=== PATIENT | male | born 1955 | race Caucasian/White ===

== ENCOUNTER → 2016-12-24 | Outpatient (REF) | payer MEDICARE ==
[~2016-12-24] MED LIST: /BENA10TA OR; /WARF5TA OR; ALLO300T OR; ATEN25TA OR; CELE-19 PO; COUM10TA OR; GLUC500T OR; LIPI10TA OR; PAIN325T OR; PERC5TAB8 OR; PERC7.5T8 OR
[2016-12-24 11:25] LABS: MEAN CORPUSCULAR HEMOGLOBIN 30.7 pg (27.0-33.0); MEAN CORPUSCULAR HGB CONC 34.7 g/dl (32.0-36.5); MEAN CORPUSCULAR VOLUME 88.6 fl (80.0-96.0); RED CELL DISTRIBUTION WIDTH 14.1 % (11.5-14.5); WHITE BLOOD COUNT 9.7 K/mm3 (4.0-10.0)
[2016-12-24 12:25] LABS: ALBUMIN/GLOBULIN RATIO 1.14 (1.00-1.93); ALKALINE PHOSPHATASE 77 U/L (45-117); ALT/SGPT 34 U/L (12-78); ANION GAP 13 MEQ/L (8-16); AST/SGOT 28 U/L (15-37); BILIRUBIN,TOTAL 1.7 MG/DL (0.2-1.0); BLOOD UREA NITROGEN 21 MG/DL (7-18); CALCIUM LEVEL 9.2 MG/DL (8.8-10.2); CARBON DIOXIDE LEVEL 28 MEQ/L (21-32); CHLORIDE LEVEL 102 MEQ/L (98-107); CHOLESTEROL LEVEL 167 MG/DL (<200); GLOMERULAR FILTRATION RATE > 60.0 (>49); GLUCOSE, FASTING 114 MG/DL (80-110); MAGNESIUM LEVEL 2.1 MG/DL (1.8-2.4); POTASSIUM SERUM 3.7 MEQ/L (3.5-5.1); SODIUM LEVEL 143 MEQ/L (136-145); TOTAL PROTEIN 7.5 GM/DL (6.4-8.2); TRIGLYCERIDES LEVEL 139 MG/DL (<150); URIC ACID 4.6 MG/DL (3.5-7.2)
== END ==
LOC: M SFHCPLAZ 09:31
PROVIDERS: ATTEND Internal Medicine
DX: M19.90 Unspecified osteoarthritis, unspecified site (principal); I10 Essential (primary) hypertension; E11.9 Type 2 diabetes mellitus without complications; E78.5 Hyperlipidemia, unspecified; M10.9 Gout, unspecified

== ENCOUNTER → 2017-07-30 | Outpatient (REF) | payer MEDICARE ==
[~2017-07-30] MED LIST changes: -CELE-19 PO; +CELE1CAP4 PO
[2017-07-30 14:09] LABS: ALBUMIN/GLOBULIN RATIO 1.08 (1.00-1.93); ALKALINE PHOSPHATASE 77 U/L (45-117); ALT/SGPT 36 U/L (12-78); ANION GAP 8 MEQ/L (8-16); AST/SGOT 34 U/L (15-37); BILIRUBIN,TOTAL 1.7 MG/DL (0.2-1.0); BLOOD UREA NITROGEN 19 MG/DL (7-18); CALCIUM LEVEL 9.3 MG/DL (8.8-10.2); CARBON DIOXIDE LEVEL 31 MEQ/L (21-32); CHLORIDE LEVEL 103 MEQ/L (98-107); CREATININE FOR GFR 0.93 MG/DL (0.70-1.30); GLOMERULAR FILTRATION RATE > 60.0 (>49); GLUCOSE, FASTING 109 MG/DL (80-110); POTASSIUM SERUM 3.7 MEQ/L (3.5-5.1); SODIUM LEVEL 142 MEQ/L (136-145); TOTAL PROTEIN 7.7 GM/DL (6.4-8.2)
== END ==
LOC: M SFHCPLAZ 09:34
PROVIDERS: ATTEND Internal Medicine
DX: I10 Essential (primary) hypertension (principal); E11.9 Type 2 diabetes mellitus without complications

== ENCOUNTER → 2018-01-28 | Outpatient (REF) | payer MEDICARE, OTHER, SELFPAY ==
[2018-01-28 11:40] LABS: HEMATOCRIT 43.1 % (42.0-52.0); HEMOGLOBIN 14.7 g/dl (13.5-17.5); MEAN CORPUSCULAR HEMOGLOBIN 29.8 pg (27.0-33.0); MEAN CORPUSCULAR HGB CONC 34.1 g/dl (32.0-36.5); MEAN CORPUSCULAR VOLUME 87.2 fl (80.0-96.0); PLATELET COUNT, AUTOMATED 195 10^3/uL (150-450); RED BLOOD COUNT 4.94 10^6/uL (4.30-6.10); RED CELL DISTRIBUTION WIDTH 14.3 % (11.5-14.5); WHITE BLOOD COUNT 5.9 10^3/uL (4.0-10.0)
[2018-01-28 12:26] LABS: ALBUMIN 3.9 GM/DL (3.2-5.2); ALBUMIN/GLOBULIN RATIO 1.08 (1.00-1.93); ALKALINE PHOSPHATASE 68 U/L (45-117); ALT/SGPT 30 U/L (12-78); ANION GAP 7 MEQ/L (8-16); AST/SGOT 28 U/L (7-37); BILIRUBIN,TOTAL 1.1 MG/DL (0.2-1.0); BLOOD UREA NITROGEN 15 MG/DL (7-18); CALCIUM LEVEL 8.9 MG/DL (8.8-10.2); CARBON DIOXIDE LEVEL 30 MEQ/L (21-32); CHLORIDE LEVEL 106 MEQ/L (98-107); CHOLESTEROL LEVEL 151 MG/DL (<200); CHOLESTEROL RISK RATIO 3.973 (<5); CREATININE FOR GFR 0.93 MG/DL (0.70-1.30); GLOMERULAR FILTRATION RATE > 60.0 (>49); GLUCOSE, FASTING 105 MG/DL (70-100); HDL CHOLESTEROL 38 MG/DL (>40); LDL CHOLESTEROL 87.2 MG/DL (<100); NON-HDL-C 113 MG/DL; POTASSIUM SERUM 3.7 MEQ/L (3.5-5.1); SODIUM LEVEL 143 MEQ/L (136-145); TOTAL PROTEIN 7.5 GM/DL (6.4-8.2); TRIGLYCERIDES LEVEL 129 MG/DL (<150); URIC ACID 4.9 MG/DL (3.5-7.2)
[2018-01-28 13:12] LABS: ESTIMATED AVERAGE GLUCOSE 126 MG/DL (60-110)
[2018-01-28 13:15] LABS: MALB URINE SIEMENS 76.4 MG/L
== END ==
LOC: M SFHCPLAZ 08:14
DX: G47.33 Obstructive sleep apnea (adult) (pediatric) (principal); I10 Essential (primary) hypertension; E11.9 Type 2 diabetes mellitus without complications; E78.5 Hyperlipidemia, unspecified; M10.9 Gout, unspecified
CPT/HCPCS: 83735

== ENCOUNTER → 2018-07-21 | Outpatient (REF) | payer OTHER, MEDICARE ==
[2018-07-21 11:27] LABS: ALBUMIN/GLOBULIN RATIO 1.18 (1.00-1.93); ALKALINE PHOSPHATASE 72 U/L (45-117); ALT/SGPT 29 U/L (12-78); ANION GAP 6 MEQ/L (8-16); AST/SGOT 28 U/L (7-37); BLOOD UREA NITROGEN 18 MG/DL (7-18); CALCIUM LEVEL 9.4 MG/DL (8.8-10.2); CARBON DIOXIDE LEVEL 32 MEQ/L (21-32); CHLORIDE LEVEL 106 MEQ/L (98-107); CHOLESTEROL LEVEL 155 MG/DL (<200); CREATININE FOR GFR 0.91 MG/DL (0.70-1.30); GLOMERULAR FILTRATION RATE > 60.0 (>49); GLUCOSE, FASTING 99 MG/DL (70-100); HDL CHOLESTEROL 42 MG/DL (>40); LDL CHOLESTEROL 94 MG/DL (<100); NON-HDL-C 113 MG/DL; POTASSIUM SERUM 4.1 MEQ/L (3.5-5.1); SODIUM LEVEL 144 MEQ/L (136-145); TOTAL PROTEIN 7.4 GM/DL (6.4-8.2); TRIGLYCERIDES LEVEL 96 MG/DL (<150)
[2018-07-21 11:53] LABS: CREATININE, URINE 78.3 MG/DL; MALB URINE SIEMENS 32.5 MG/L
[2018-07-21 12:01] LABS: MAU/CREAT RATIO 41.5 MCG/MG (0.0-30.0)
[2018-07-21 12:14] LABS: HEPATITIS C VIRUS ABY INDEX < 0.0 INDEX (<0.8)
[2018-07-21 12:15] LABS: HIV 1&2 SCREEN CENTAUR NEGATIVE (NEGATIVE)
[2018-07-21 12:55] LABS: ESTIMATED AVERAGE GLUCOSE 131 MG/DL (60-110); HEMOGLOBIN A1c 6.2 %
== END ==
LOC: M SFHCPLAZ 07:29
DX: I10 Essential (primary) hypertension (principal); Z11.59 Encounter for screening for other viral diseases; E11.9 Type 2 diabetes mellitus without complications; Z11.4 Encounter for screening for human immunodeficiency virus [HIV]; E78.5 Hyperlipidemia, unspecified

== ENCOUNTER → 2018-08-27 | Outpatient (CLI) | payer OTHER | LOC: M RAD 07:07 | DX: M50.21 Other cervical disc displacement, high cervical region (principal); M47.892 Other spondylosis, cervical region; M48.02 Spinal stenosis, cervical region; Z98.1 Arthrodesis status | CPT/HCPCS: 72141 ==

== ENCOUNTER → 2019-01-13 | Outpatient (REF) | payer MEDICARE ==
[2019-01-13 12:18] LABS: HEMATOCRIT 45.2 % (42.0-52.0); HEMOGLOBIN 16.2 g/dl (13.5-17.5); MEAN CORPUSCULAR HEMOGLOBIN 32.4 pg (27.0-33.0); MEAN CORPUSCULAR HGB CONC 35.8 g/dl (32.0-36.5); MEAN CORPUSCULAR VOLUME 90.4 fl (80.0-96.0); PLATELET COUNT, AUTOMATED 205 10^3/uL (150-450)
[2019-01-13 12:32] LABS: MALB URINE SIEMENS 82.1 MG/L; MAU/CREAT RATIO 68.4 MCG/MG (0.0-30.0)
[2019-01-13 12:55] LABS: ALBUMIN 4.2 GM/DL (3.2-5.2); ALT/SGPT 34 U/L (12-78); BILIRUBIN,TOTAL 1.7 MG/DL (0.2-1.0); BLOOD UREA NITROGEN 22 MG/DL (7-18); CALCIUM LEVEL 9.4 MG/DL (8.8-10.2); CARBON DIOXIDE LEVEL 29 MEQ/L (21-32); CHLORIDE LEVEL 104 MEQ/L (98-107); CREATININE FOR GFR 0.89 MG/DL (0.70-1.30); GLOMERULAR FILTRATION RATE > 60.0 (>49); GLUCOSE, FASTING 98 MG/DL (70-100); MAGNESIUM LEVEL 2.1 MG/DL (1.8-2.4); POTASSIUM SERUM 3.8 MEQ/L (3.5-5.1); SODIUM LEVEL 141 MEQ/L (136-145); TOTAL PROTEIN 7.7 GM/DL (6.4-8.2)
== END ==
LOC: M SFHCPLAZ 08:05
PROVIDERS: ATTEND Internal Medicine
DX: G47.33 Obstructive sleep apnea (adult) (pediatric) (principal); I10 Essential (primary) hypertension; E11.9 Type 2 diabetes mellitus without complications

== ENCOUNTER → 2019-06-09 | Outpatient (CLI) | payer OTHER ==
[~2019-06-09] MED LIST changes: -/WARF5TA OR; +COUM1TAB17 OR
--- NOTE | 2019-06-13 00:01 | ECWPNPC ---
PATIENT NAME: EDUARDO SANTOS : 1955 GENDER: MALE VISIT DATE: 06/09/2019 DISCHARGE DATE: 06/09/19 0000 VISIT LOCKED DATE TIME: PHYSICIAN: MARGARITA GREER MD RESOURCE: MARGARITA GREER MD REASON FOR APPOINTMENT 1. WC NECK PAIN HISTORY OF PRESENT ILLNESS NEW PATIENT CONSULT: WHEN DID YOUR PAIN FIRST START? . BRIEFLY DESCRIBE HOW YOUR PAIN STARTED? . HOW DOES YOUR PAIN CHANGE WITH TIME? . DOES YOUR PAIN AWAKEN YOU FROM SLEEP? . HOW MANY HOURS OF SLEEP DO YOU NORMALLY GET? . ANY DIAGNOSTIC TESTING? . FACILITY WHERE TESTS WERE DONE? ____. PAIN TREATMENT TREATMENT YES CANCER HAVE YOU EVER HAD ANY TYPE OF CANCER?NO NO. 63 YEAR OLD MALE PATIENT WITH A HISTORY OF CHRONIC NECK PAIN. THE PATIENT DESCRIBES THE PAIN ACHING, STABBING, INTERMITTENT, NIGHTLY, AND CONTINUOUS WITH A PAIN SCORE OF 7-10/10 DEPENDING ON PHYSICAL ACTIVITY. 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 THE PATIENT STATES HE EXPERIENCED TWO MORE INJURIES IN 1992 AND 1993 WHERE HE WAS USING A MANUAL QUETA TO PULL OUT CASES, BUT THE TRUCK BASE WAS SLIPPERY AND HIS FEET GAVE OUT THAT CAUSED HIM TO SLIP ONTO HIS BACK. THE PATIENT SAYS HE HAS TRIED PHYSICAL THERAPY IN THE PAST THAT OFFERED SOME PAIN RELIEF FOR HIM AND HE HAD A NECK SURGERY IN 2005, HOWEVER HIS PAIN PERSISTS. THE PATIENT SAYS HIS PAIN IS AFFECTING HIS ABILITY TO PERFORM HIS DAILY ACTIVITIES, SUCH CLEANING, GROCERY SHOPPING, DOING THE LAUNDRY, AND LIFTING OBJECTS. THE PATIENT SAYS HE IS USING NEURONTIN 600 MG, CELEBREX 200 MG, AND VICODIN 5-300 MG THAT WAS PRESCRIBED BY HIS PRIMARY CARE, KENNA REYES, TO HELP WITH HIS NECK PAIN. PATIENT DENIES UNEXPLAINABLE WEIGHT LOSS, FEVER, CHILLS, NEW CHANGES ON HIS URINARY OR BOWEL CONTROL. PAIN SCREENING: PATIENT HAS A COMPLAINT OF ACUTE OR CHRONIC PAIN :YES FALL RISK SCREENING: SCREENING : NO FALLS IN THE PAST YEAR. BLAKE INVENTORY: QUESTIONNAIRE ASSESSEDTBD SCORE VALUE CALCULATED TBD CURRENT MEDICATIONS TAKING CARVEDILOL 12.5 MG TABLET 1 TAB ORALLY TWICE DAILY TAKING AMLODIPINE BESY-BENAZEPRIL HCL 10-40 MG CAPSULE 1 CAPSULE ORALLY ONCE A DAY TAKING CHLORTHALIDONE 25 MG TABLET 1/2 TABLET ORALLY ONCE A DAY TAKING LIPITOR 20 MG TABLET 1/2 TABLET ORALLY ONCE A DAY TAKING FISH OIL 1000 MG CAPSULE 1 CAP(S) ORALLY DAILY TAKING METFORMIN HCL ER 500 MG TABLET EXTENDED RELEASE 24 HOUR 2 TABLET WITH EVENING MEAL ORALLY DAILY TAKING ALLOPURINOL 300 MG TABLET 1 TABLET ORALLY ONCE A DAY TAKING MAY HAVE HI THC VAPE, PRN PAIN. HI THC CAPSULES 1 HOUR PRIOR TO BEDTIME. CBD-20-40 PER DAY (CAP OR VAPE) MEDICAL MARIJUANA DAILY, NOTES: (MEDICAL MARIJUANA) TAKING MAY HAVE 1 CAPSULE 1:1 THC/CBD OIL CAPSULE NEEDED FOR BREAKTHROUGH PAIN TAKING CELEBREX 200 MG CAPSULE 1 CAPSULE ORALLY ONCE A DAY, NOTES: WORKERS COMPENSATION TAKING NEURONTIN 600 MG TABLET 1 TABLET ORALLY THREE TIMES A DAY, NOTES: WORKERS COMPENSATION TAKING TACLONEX 0.005-0.064 % OINTMENT 1 APPLICATION TO HANDS EXTERNALLY ONCE A DAY FOR 3 WKS AND ONE WK OFF AND REPEAT TAKING MUPIROCIN 2 % OINTMENT 1 APPLICATION TO INSIDE OF NOSE EXTERNALLY DAILY NEEDED TAKING BETAMETHASONE DIPROPIONATE 0.05 % CREAM 1 APPLICATION TO AFFECTED AREA EXTERNALLY 1 - 2 X A DAY WHEN EAR ITCHING TAKING MULTIPLE VITAMIN ONE TABLET 1 TAB ORALLY DAILY TAKING VICODIN 5-300 MG TABLET 1 TABLET ORALLY BID PRN BACK PAIN MDD2 [facility] ISTOP [id number] TAKING VIAGRA 50 MG TABLET 1 TABLET NEEDED ORALLY ONCE A DAY DISCONTINUED NORCO 5-325 MG TABLET 1 TABLET NEEDED ORALLY TWICE A DAY, MDD=2, NOTES: WORKERS COMPSENSATION DISCONTINUED FLEXERIL 10 MG TABLET 1/2 TABLET NEEDED ORALLY AT BEDTIME MEDICATION LIST REVIEWED AND RECONCILED WITH THE PATIENT PAST MEDICAL HISTORY DIABETES MELLITUS ESSENTIAL (PRIMARY) HYPERTENSION OSTEOARTHRITIS GOUT FATTY LIVER HYPERLIPIDEMIA PSORIASIS OBSTRUCTIVE SLEEP APNEA SYNDROME SEIZURE DISORDER ALLERGIES N.K.D.A. SURGICAL HISTORY TONSILLECTOMY RIGHT MCL REPAIR 1974 VASECTOMY 1986 RIGHT CARPAL TUNNEL RELEASE 1993 LAMINECTOMY WITH FUSION 1996 LEFT CARPAL RELEASE 1996 CERVICAL SPINE SURGERY: C4-5, C5-6, C6-7 ANTERIOR CERVICAL DISCECTOMY WITH FUSION, DONOR GRAFT AND INSTRUMENTATION 12/04/2005 RIGHT TOTAL KNEE 06/16/10 SPINE SURGERY FUSION WITH DISCECTOMY 01/2015 FAMILY HISTORY FATHER: 74 YRS, CA, DIAGNOSED WITH HYPERTENSION, CANCER MOTHER: 77 YRS SIBLINGS: BROTHER DM TYPE 1 1 BROTHER(S) . DENIES ANY FAMILY HX SKIN CANCER BROTHER HAS TYPE I DIABETES. SOCIAL HISTORY GENERAL: TOBACCO USE ARE YOU A:NONSMOKER OTHERS AT HOME: NONE. EDUCATION LEVEL OF EDUCATION:FINISHED COLLEGE DIET: REGULAR. LANGUAGE LANGUAGES SPOKEN:UKRAINIAN RECREATIONAL DRUG USE DRUG USE?NO EXERCISE: WALKS, WORKS OUT IN THE GYM 3 TIMES A WEEK. LEARNING BARRIERS / SPECIAL NEEDS BARRIERS TO LEARNING?NO PAIN CLINIC PFS, CLERGY, PUBLIC HEALTH REFERRALS PFS REFERRAL NEEDED?NO CLERGY REFERRAL NEEDED?NO PUBLIC HEALTH REFERRAL NEEDED?NO WAS THE PROVIDER NOTIFIED OF ANY PERTINENT INFO?NO HAS THE PATIENT BEEN EDUCATED REGARDING HIS/HER PLAN OF CARE?YES HAS THE PATIENT BEEN EDUCATED REGARDING PAIN, THE RISK FOR PAIN, THE IMPORTANCE OF EFFECTIVE PAIN MANAGEMENT, AND THE PAIN ASSESSMENT PROCESS?YES LATEX QUESTIONNAIRE LATEX ALLERGY : HAVE YOU EVER DEVELOPED ANY TYPE OF REACTION AFTER HANDLING LATEX PRODUCTS SUCH RUBBER GLOVES, CONDOMS, DIAPHRAGMS, BALLOONS, SOCKS, OR UNDERWEAR?NO LATEX ALLERGY : HAVE YOU EVER DEVELOPED ANY TYPE OF REACTION DURING OR AFTER DENTAL APPOINTMENT, VAGINAL/RECTAL EXAMINATION, SURGICAL PROCEDURE, OR ANY OTHER EXPOSURE?NO LATEX RISK : HAVE YOU EVER HAD ANY DIFFICULTY BREATHING OR HIVES AFTER EATING OR HANDLING ANY FRUITS, OR VEGETABLES; SUCH KIWI, BANANAS, STONE FRUITS, OR CHESTNUTSNO LATEX RISK : DO YOU HAVE A PREVIOUS PERSONAL HISTORY OF MORE THAN NINE SURGERIES, SPINA BIFIDA, OR REPEATED CATHERIZATIONS? NO LATEX RISK : ARE YOU FREQUENTLY EXPOSED TO LATEX PRODUCTS IN YOUR OCCUPATION?NO DATE ASKED : 06/09/2019 CAFFEINE CAFFEINE USE?YES 1-2 CUPS PER DAY ADVANCE DIRECTIVE ADVANCE DIRECTIVE DISCUSSED WITH PATIENT:YES SIMONE SANTOS (HCP) [phone] ON FILE AT [facility] [id number] EPISCOPALIAN MARITAL STATUS: .. ALCOHOL SCREENING DID YOU HAVE A DRINK CONTAINING ALCOHOL IN THE PAST YEAR?YES HOW OFTEN DID YOU HAVE A DRINK CONTAINING ALCOHOL IN THE PAST YEAR?MONTHLY OR LESS (1 POINT) HOW MANY DRINKS DID YOU HAVE ON A TYPICAL DAY WHEN YOU WERE DRINKING IN THE PAST YEAR?1 OR 2 (0 POINTS) HOW OFTEN DID YOU HAVE SIX OR MORE DRINKS ON ONE OCCASION IN THE PAST YEAR?NEVER (0 POINTS) POINTS1 INTERPRETATIONNEGATIVE OCCUPATION: DISABLED. HOSPITALIZATION/MAJOR DIAGNOSTIC PROCEDURE SURGERY RELATED REVIEW OF SYSTEMS REVIEWED BY: PROVIDER: MARGARITA GREER MD . CONSTITUTIONAL: ANY CHANGE IN YOUR MEDICAL CONDITION? NO . CHILLS NO . FEVER NO . INFECTION: DO YOU HAVE NEW INFECTIONS? NO . DO YOU HAVE HISTORY OF MRSA? NO . MUSCULOSKELETAL: ANY NEW PATTERNS OF PAIN OR NUMBNESS? YES, NECK . SYTEMIC LUPUS NO . GASTROENTEROLOGY: ANY NEW CHANGE IN BOWEL CONTROL? NO . BARRETTS ESOPHAGUS NO . CIRRHOSIS NO . HEPATITIS NO . LIVER FAILURE NO . ACID REFLUX NO . UNEXPLAINED WEIGHT LOSS NO . GENITOURINARY: ANY NEW CHANGE IN BLADDER CONTROL? YES, PCP AWARE . IS THERE A CHANCE YOU COULD BE ? NO . HEMATOLOGY/LYMPH: DO YOU TAKE ANY BLOOD THINNERS? (FOR EXAMPLE- COUMADIN, PLAVIX, AGGRENOX, PLATEL, PRADAXA, OR XARELTO) NO . WHEN WAS YOUR LAST DOSE? DATE: TIME: . LOW PLATELET COUNT NO . SICKLE CELL DISEASE NO . VON WILLIEBRANDS NO . FACTOR V LEIDEN NO . THALLASEMIA NO . ANEMIA NO . EASY BRUISING NO . NEUROLOGY: HAVE YOU FALLEN IN THE PAST 12 MONTHS? NO . ANY NEW EXTREMITY NUMBNESS OR WEAKNESS? NO . HEAD INJURY YES . DEMENTIA NO . CEREBRAL PALSY NO . MULTIPLE SCLEROSIS NO . DIZZINESS NO . HEADACHE NO . STROKES NO . VERTIGO NO . CARDIOLOGY: DO YOU HAVE A PACEMAKER OR DEFIBRILLATOR? NO . ANGINA NO . HEART ATTACK NO . HEART SURGERY NO . CONGESTIVE HEART FAILURE/FLUID OVERLOAD NO . CHEST PAIN NO . HIGH BLOOD PRESSURE ON MEDICATION(S) . IRREGULAR HEART BEAT NO . RESPIRATORY: HAVE YOU BEEN SICK IN THE PAST WEEK? NO . FEVER NO . FLU LIKE SYMPTOMS? NO . CPAP YES . BYPAP NO . ASTHMA NO . EMPHYSEMA NO . CHRONIC LUNG DISEASES NO . SHORTNESS OF BREATH ON EXERTION NO . DO YOU USE ANY TYPE OF TOBACCO (SMOKE, SMOKELESS, CHEW)? NO . COUGH NO . SNORING YES . INTEGUMENTARY: DO YOU HAVE ANY RASHES OR OPEN SORES? YES,PSORIOASIS . ALLERGIC/IMMUNO: ARE YOU ALLERGIC TO IV DYE? NO . ANY NEW ALLERGIES? NO . PSYCHIATRIC: DO YOU HAVE THOUGHTS OF HURTING YOURSELF OR SOMEONE ELSE? NO . ARE YOU ABUSED, NEGLECTED, OR IN AN UNSAFE ENVIRONMENT? NO . ENDOCRINOLOGY: ARE YOU DIABETIC? YES . THYROID DISORDER NO . OTHER: DO YOU NEED ANY PRESCRIPTIONS? NO . IF YES, PLEASE LIST: ____ . ANY NEW PROBLEMS WITH YOUR MEDICATIONS? NO . WHEN DID YOU LAST EAT? ____ . WHEN DID YOU LAST DRINK? ____ . WHAT DID YOU LAST DRINK? ____ . NAME OF PERSON DRIVING YOU HOME? ____ . DO YOU HAVE ANY OTHER QUESTIONS OR CONCERNS NO . VITAL SIGNS WT 215 LBS, HT 68 IN, BMI 32.69 INDEX, BP 147/73 MM HG, HR 53 /MIN, RR 18 /MIN, TEMP 97.9 F, OXYGEN SAT % 96%, SAFE IN ENV? (Y/N) YES, NA INITIALS AW 1509, REVIEWED BY: PARAG. EXAMINATION GENERAL EXAMINATION: PATIENT IS ALERT O X 3 AND COOPERATIVE. LUNGS CLEAR, TO AUSCULTATION. HEART: NO MURMURS OR GALLOPS; FACIAL CRANIAL NERVES ARE GROSSLY NORMAL. GOOD SYMMETRY OF FACIAL MUSCLE MOVEMENT. NORMAL VISUAL CHIANG. PATIENT CAN ABDUCT UPPER EXTREMITIES, WITH SOME DIFFICULTIES ON THE RIGHT SIDE. HAND PARACHUTE REPAIRER ON THE RIGHT SIDE IS A LITTLE REDUCED COMPARED WITH THE LEFT HAND. TENDERNESS IN THE NECK, ESPECIALLY ON THE RIGHT SIDE. PRESENCE OF BANDS OF TISSUE AND TRIGGER POINTS WITH RESTRICTION OF MOVEMENT OF THE NECK. MRI OF THE CERVICAL SPINE DONE ON 08/27/2018 SHOWS FACET ARTHROPATHY CHANGES, BULGING DISCS, AND MODERATE BILATERAL FORAMINAL NARROWING AT MULTIPLE LEVELS. ASSESSMENTS CERVICALGIA - M54.2 (PRIMARY) MYALGIA, OTHER SITE - M79.18 CERVICAL POST-LAMINECTOMY SYNDROME - M96.1 CERVICAL DISC DISORDER WITH RADICULOPATHY OF CERVICAL REGION - M50.10 TREATMENT CERVICALGIA CLINICAL NOTES: WE DISCUSSED SEVERAL ISSUES WITH MR. SANTOS'S PAIN MANAGEMENT CASE. DUE TO THE TRIGGER POINTS, BANDS OF TISSUE, AND RESTRICTION OF MOVEMENT, I WOULD LIKE TO MOVE FORWARD WITH A TRIGGER POINT INJECTION AT THIS TIME. WE DISCUSSED THE BENEFITS, RISKS, AND ALTERNATIVES OF THE INJECTION AND THE PATIENT WOULD LIKE TO PROCEED. I AM LOOKING FOR LONG LASTING PAIN RELIEF AND INCREASED FUNCTIONALITY WITH THIS INJECTION FOR THE PATIENT. THE PATIENT SAYS HE IS PLANNING TO SEE A NEUROSURGEON SOON TO DISCUSS OPTIONS. THE PATIENT WILL FOLLOW UP IN SEVERAL WEEKS AFTER HIS INJECTION. INSTRUCTIONS WERE GIVEN, QUESTIONS WERE ANSWERED, PATIENT REPORTS UNDERSTANDING AND AGREES WITH THE PLAN. I, DANIEL SALINAS, DOCUMENTED THE ABOVE INFORMATION ACTING A SCRIBE FOR DR. GREER. I HAVE REVIEWED THE ABOVE DOCUMENT, WRITTEN BY DANIEL WEBBIBSamir AND I VERIFY THAT IT IS ACCURATE. DEAR RONNELL NAILS: THANK YOU FOR YOUR KIND REFERRAL OF EDUARDO SANTOS. IF YOU WANT TO DISCUSS HIS CASE WITH ME PLEASE CALL ME AT THE PAIN CENTER AT [phone]. SINCERELY, MARGARITA GREER MD PAIN MEDICINE . PROCEDURES PN WORKMANS' COMP OPINION IN YOUR OPINION, WAS THE INCIDENT THAT THE PATIENT DESCRIBED THE COMPETENT MEDICAL CAUSE OF THIS INJURY/ILLNESS? YES ARE THE PATIENT'S COMPLAINTS CONSISTENT WITH HIS/HER HISTORY OF THE INJURY/ILLNESS? YES IS THE PATIENT'S HISTORY OF THE INJURY/ILLNESS CONSISTENT WITH YOUR OBJECTIVE FINDING? YES WHAT IS THE PERCENTAGE OF TEMPORARY IMPAIRMENT? MODERATE TO MARKED = 66.7% IS THE PATIENT WORKING? NO DOCTOR ON SITE: MARGARITA CARMEN MD PROCEDURE CODES FA211 ESTABILISHED PATIENT [facility] FACILITY CHARGE [id number] CURRENT MEDS W/DOSAGES DOCUMENTED G8730 PAIN ASSESS POS TOOL F/U PLAN DOC DISPOSITION & COMMUNICATION FOLLOW UP 3 WEEKS (REASON: TPI) ELECTRONICALLY SIGNED BY MARGARITA GREER MD, MD ON 06/12/2019 AT 05:04 PM EDT DISCLAIMER : THIS IS A VISIT SUMMARY EXTRACTED FROM THE [employer] CHART. IT IS NOT A COPY OF THE [employer] PROGRESS NOTE. MTDCecilia
== END ==
LOC: M PAIN 15:30
PROVIDERS: ATTEND Anesthesiology
DX: M54.2 Cervicalgia (principal); M79.18 Myalgia, other site; M96.1 Postlaminectomy syndrome, not elsewhere classified; E11.9 Type 2 diabetes mellitus without complications; I10 Essential (primary) hypertension; M19.90 Unspecified osteoarthritis, unspecified site; E78.5 Hyperlipidemia, unspecified; G47.33 Obstructive sleep apnea (adult) (pediatric); G40.909 Epilepsy, unspecified, not intractable, without status epilepticus; Z96.651 Presence of right artificial knee joint; Z79.84 Long term (current) use of oral hypoglycemic drugs; Z79.891 Long term (current) use of opiate analgesic; Z79.899 Other long term (current) drug therapy

== ENCOUNTER → 2019-07-23 | Outpatient (REF) | payer OTHER ==
[2019-07-23 12:30] LABS: HEMATOCRIT 45.1 % (42.0-52.0); HEMOGLOBIN 15.4 g/dl (13.5-17.5); MEAN CORPUSCULAR HEMOGLOBIN 30.9 pg (27.0-33.0); MEAN CORPUSCULAR HGB CONC 34.1 g/dl (32.0-36.5); MEAN CORPUSCULAR VOLUME 90.6 fl (80.0-96.0); PLATELET COUNT, AUTOMATED 221 10^3/uL (150-450); RED BLOOD COUNT 4.98 10^6/uL (4.30-6.10); WHITE BLOOD COUNT 6.8 10^3/uL (4.0-10.0)
[2019-07-23 12:38] LABS: ALBUMIN 3.9 GM/DL (3.2-5.2); ALT/SGPT 37 U/L (12-78); BILIRUBIN,TOTAL 1.5 MG/DL (0.2-1.0); BLOOD UREA NITROGEN 19 MG/DL (7-18); CALCIUM LEVEL 9.2 MG/DL (8.8-10.2); CARBON DIOXIDE LEVEL 30 MEQ/L (21-32); CHLORIDE LEVEL 106 MEQ/L (98-107); CHOLESTEROL LEVEL 169 MG/DL (<200); CHOLESTEROL RISK RATIO 4.121 (<5); CREATININE FOR GFR 0.87 MG/DL (0.70-1.30); GLOMERULAR FILTRATION RATE > 60.0 (>49); GLUCOSE, FASTING 108 MG/DL (70-100); HDL CHOLESTEROL 41 MG/DL (>40); LDL CHOLESTEROL 105 MG/DL (<100); MAGNESIUM LEVEL 1.9 MG/DL (1.8-2.4); NON-HDL-C 128 MG/DL; POTASSIUM SERUM 3.5 MEQ/L (3.5-5.1); SODIUM LEVEL 142 MEQ/L (136-145); TOTAL PROTEIN 7.3 GM/DL (6.4-8.2); TRIGLYCERIDES LEVEL 113 MG/DL (<150); URIC ACID 4.8 MG/DL (3.5-7.2)
[2019-07-23 12:52] LABS: HEMOGLOBIN A1c 6.5 %
[2019-07-23 13:04] LABS: MAU/CREAT RATIO 50.8 MCG/MG (0.0-30.0)
== END ==
LOC: M SFHCPLAZ 08:28
PROVIDERS: ATTEND Internal Medicine
DX: G47.33 Obstructive sleep apnea (adult) (pediatric) (principal); I10 Essential (primary) hypertension; E11.9 Type 2 diabetes mellitus without complications; M10.9 Gout, unspecified

== ENCOUNTER → 2020-01-29 | Outpatient (REF) | payer OTHER ==
[2020-01-29 12:28] LABS: ALT/SGPT 33 U/L (12-78); BILIRUBIN,TOTAL 1.5 MG/DL (0.2-1.0); BLOOD UREA NITROGEN 17 MG/DL (7-18); CALCIUM LEVEL 9.6 MG/DL (8.8-10.2); CARBON DIOXIDE LEVEL 33 MEQ/L (21-32); CHLORIDE LEVEL 105 MEQ/L (98-107); CREATININE FOR GFR 0.95 MG/DL (0.70-1.30); GLOMERULAR FILTRATION RATE > 60.0 (>49); GLUCOSE, FASTING 108 MG/DL (70-100); POTASSIUM SERUM 3.6 MEQ/L (3.5-5.1); SODIUM LEVEL 141 MEQ/L (136-145); TOTAL PROTEIN 7.7 GM/DL (6.4-8.2)
[2020-01-29 13:02] LABS: HEMOGLOBIN A1c 6.3 %
[2020-01-29 13:12] LABS: MALB URINE SIEMENS 41.9 MG/L; MAU/CREAT RATIO 29.9 MCG/MG (0.0-30.0)
== END ==
LOC: M PLALAB 09:04
PROVIDERS: ATTEND Nurse Practitioner Family
DX: I10 Essential (primary) hypertension (principal); E11.9 Type 2 diabetes mellitus without complications; Z12.5 Encounter for screening for malignant neoplasm of prostate

== ENCOUNTER → 2020-08-03 | Outpatient (REF) | payer MEDICARE, OTHER ==
[2020-08-03 14:09] LABS: HEMATOCRIT 45.3 % (42.0-52.0); HEMOGLOBIN 15.1 g/dl (13.5-17.5); MEAN CORPUSCULAR HEMOGLOBIN 30.1 pg (27.0-33.0); MEAN CORPUSCULAR HGB CONC 33.3 g/dl (32.0-36.5); MEAN CORPUSCULAR VOLUME 90.2 fl (80.0-96.0); PLATELET COUNT, AUTOMATED 225 10^3/uL (150-450); RED BLOOD COUNT 5.02 10^6/uL (4.30-6.10); WHITE BLOOD COUNT 6.6 10^3/uL (4.0-10.0)
[2020-08-03 14:38] LABS: ALBUMIN 3.9 GM/DL (3.2-5.2); ALT/SGPT 30 U/L (12-78); BILIRUBIN,TOTAL 1.3 MG/DL (0.2-1.0); BLOOD UREA NITROGEN 17 MG/DL (7-18); CALCIUM LEVEL 9.8 MG/DL (8.8-10.2); CARBON DIOXIDE LEVEL 31 MEQ/L (21-32); CHLORIDE LEVEL 106 MEQ/L (98-107); CHOLESTEROL LEVEL 182 MG/DL (<200); CHOLESTEROL RISK RATIO 4.136 (<5); CREATININE FOR GFR 0.97 MG/DL (0.70-1.30); GLOMERULAR FILTRATION RATE > 60.0 (>49); GLUCOSE, FASTING 108 MG/DL (70-100); HDL CHOLESTEROL 44 MG/DL (>40); LDL CHOLESTEROL 113 MG/DL (<100); MAGNESIUM LEVEL 1.8 MG/DL (1.8-2.4); NON-HDL-C 138 MG/DL; POTASSIUM SERUM 4.2 MEQ/L (3.5-5.1); SODIUM LEVEL 142 MEQ/L (136-145); TOTAL PROTEIN 7.6 GM/DL (6.4-8.2); TRIGLYCERIDES LEVEL 127 MG/DL (<150); URIC ACID 4.5 MG/DL (3.5-7.2)
[2020-08-03 14:44] LABS: HEMOGLOBIN A1c 5.8 %
[2020-08-03 14:45] LABS: CREATININE, URINE 67.7 MG/DL; MALB URINE SIEMENS 50.6 MG/L; MAU/CREAT RATIO 74.7 MCG/MG (0.0-30.0)
== END ==
LOC: M PLALAB 08:31
PROVIDERS: ATTEND Internal Medicine
DX: G47.33 Obstructive sleep apnea (adult) (pediatric) (principal); I10 Essential (primary) hypertension; E11.9 Type 2 diabetes mellitus without complications; E78.5 Hyperlipidemia, unspecified; M10.9 Gout, unspecified

== ENCOUNTER → 2021-01-02 | Outpatient (CLI) | payer MEDICARE ==
[2021-01-02 12:34] LABS: HEPATITIS B SURFACE ANTIBODY NEGATIVE (POSITIVE); HEPATITIS B SURFACE ANTIGEN NEGATIVE (NEGATIVE); HEPATITIS C VIRUS ABY INDEX < 0.0 INDEX (<0.8); HIV 1&2 SCREEN CENTAUR NEGATIVE (NEGATIVE)
== END ==
LOC: M LAB 09:58
PROVIDERS: ATTEND Dermatology
DX: Z79.899 Other long term (current) drug therapy (principal)

== ENCOUNTER → 2021-01-24 | Outpatient (REF) | payer MEDICARE, OTHER ==
[2021-01-24 14:30] LABS: ALBUMIN 4.1 GM/DL (3.2-5.2); ALT/SGPT 32 U/L (12-78); BILIRUBIN,TOTAL 1.4 MG/DL (0.2-1.0); BLOOD UREA NITROGEN 22 MG/DL (7-18); CARBON DIOXIDE LEVEL 33 MEQ/L (21-32); CHLORIDE LEVEL 105 MEQ/L (98-107); CHOLESTEROL LEVEL 157 MG/DL (<200); CHOLESTEROL RISK RATIO 3.413 (<5); GLOMERULAR FILTRATION RATE > 60.0 (>49); GLUCOSE, FASTING 112 MG/DL (70-100); HDL CHOLESTEROL 46 MG/DL (>40); LDL CHOLESTEROL 94 MG/DL (<100); MAGNESIUM LEVEL 2.1 MG/DL (1.8-2.4); NON-HDL-C 111 MG/DL; POTASSIUM SERUM 4.4 MEQ/L (3.5-5.1); SODIUM LEVEL 143 MEQ/L (136-145); TOTAL PROTEIN 7.9 GM/DL (6.4-8.2); TRIGLYCERIDES LEVEL 84 MG/DL (<150); URIC ACID 4.5 MG/DL (3.5-7.2)
[2021-01-24 14:58] LABS: HEMOGLOBIN A1c 5.8 %
== END ==
LOC: M PLALAB 09:18
PROVIDERS: ATTEND Internal Medicine
DX: I10 Essential (primary) hypertension (principal); E11.9 Type 2 diabetes mellitus without complications; E78.5 Hyperlipidemia, unspecified; Z12.5 Encounter for screening for malignant neoplasm of prostate; M10.9 Gout, unspecified
CPT/HCPCS: 36415; 80053; 80061; 83036; 83735; 84550; G0103

== ENCOUNTER → 2021-03-23 | Outpatient (CLI) | payer MEDICARE ==
[2021-03-23 10:48] LABS: BASO # 0.1 10^3/uL (0.0-0.2); BASO % 1.4 % (0.0-1.0); EOS # 0.2 10^3/uL (0.0-0.5); EOS % 3.1 % (0.0-3.0); HEMATOCRIT 43.7 % (42.0-52.0); HEMOGLOBIN 14.5 g/dl (13.5-17.5); LYMPH # 1.3 10^3/uL (1.5-5.0); LYMPH % 20.7 % (24.0-44.0); MEAN CORPUSCULAR HEMOGLOBIN 30.3 pg (27.0-33.0); MEAN CORPUSCULAR HGB CONC 33.2 g/dl (32.0-36.5); MEAN CORPUSCULAR VOLUME 91.4 fl (80.0-96.0); MONO # 0.8 10^3/uL (0.0-0.8); MONO % 12.1 % (2.0-8.0); NEUTROPHILS % 62.4 % (36.0-66.0); PLATELET COUNT, AUTOMATED 207 10^3/uL (150-450); RED BLOOD COUNT 4.78 10^6/uL (4.30-6.10); WHITE BLOOD COUNT 6.4 10^3/uL (4.0-10.0)
[2021-03-23 11:20] LABS: ALBUMIN 3.9 GM/DL (3.2-5.2); ALT/SGPT 31 U/L (12-78); BILIRUBIN,TOTAL 1.4 MG/DL (0.2-1.0); BLOOD UREA NITROGEN 13 MG/DL (7-18); CALCIUM LEVEL 10.1 MG/DL (8.8-10.2); CARBON DIOXIDE LEVEL 32 MEQ/L (21-32); CHLORIDE LEVEL 103 MEQ/L (98-107); CREATININE FOR GFR 0.94 MG/DL (0.70-1.30); GLOMERULAR FILTRATION RATE > 60.0 (>49); GLUCOSE, FASTING 107 MG/DL (70-100); POTASSIUM SERUM 4.2 MEQ/L (3.5-5.1); SODIUM LEVEL 141 MEQ/L (136-145); TOTAL PROTEIN 7.8 GM/DL (6.4-8.2)
== END ==
LOC: M LAB 09:55
PROVIDERS: ATTEND Dermatology
DX: Z79.899 Other long term (current) drug therapy (principal)
CPT/HCPCS: 11900; 36415; 80053; 85025; J3301

== ENCOUNTER → 2021-04-06 | Outpatient (CLI) | payer MEDICARE ==
[2021-04-06 15:14] LABS: HEMATOCRIT 41.1 % (42.0-52.0); HEMOGLOBIN 13.8 g/dl (13.5-17.5); MEAN CORPUSCULAR HEMOGLOBIN 30.9 pg (27.0-33.0); MEAN CORPUSCULAR HGB CONC 33.6 g/dl (32.0-36.5); MEAN CORPUSCULAR VOLUME 92.2 fl (80.0-96.0); PLATELET COUNT, AUTOMATED 212 10^3/uL (150-450); RED BLOOD COUNT 4.46 10^6/uL (4.30-6.10); WHITE BLOOD COUNT 7.6 10^3/uL (4.0-10.0)
[2021-04-06 15:40] LABS: ALBUMIN 3.9 GM/DL (3.2-5.2); ALT/SGPT 32 U/L (12-78); BILIRUBIN,TOTAL 1.1 MG/DL (0.2-1.0); BLOOD UREA NITROGEN 22 MG/DL (7-18); CALCIUM LEVEL 9.7 MG/DL (8.8-10.2); CARBON DIOXIDE LEVEL 32 MEQ/L (21-32); CHLORIDE LEVEL 107 MEQ/L (98-107); CREATININE FOR GFR 1.04 MG/DL (0.70-1.30); GLOMERULAR FILTRATION RATE > 60.0 (>49); GLUCOSE, FASTING 117 MG/DL (70-100); SODIUM LEVEL 142 MEQ/L (136-145); TOTAL PROTEIN 7.5 GM/DL (6.4-8.2)
== END ==
LOC: M LAB 14:41
PROVIDERS: ATTEND Physician Assistant
DX: Z79.899 Other long term (current) drug therapy (principal)
CPT/HCPCS: 36415; 80053; 85027; G0463

== ENCOUNTER → 2021-07-28 | Outpatient (CLI) | payer MEDICARE ==
[2021-07-28 15:58] LABS: BASO # 0.1 10^3/uL (0.0-0.2); BASO % 1.3 % (0.0-1.0); EOS # 0.3 10^3/uL (0.0-0.5); EOS % 3.5 % (0.0-3.0); HEMATOCRIT 41.4 % (42.0-52.0); HEMOGLOBIN 14.1 g/dl (13.5-17.5); LYMPH # 1.2 10^3/uL (1.5-5.0); MEAN CORPUSCULAR HEMOGLOBIN 31.9 pg (27.0-33.0); MEAN CORPUSCULAR HGB CONC 34.1 g/dl (32.0-36.5); MEAN CORPUSCULAR VOLUME 93.7 fl (80.0-96.0); MONO # 0.7 10^3/uL (0.0-0.8); MONO % 9.4 % (2.0-8.0); NEUTROPHILS # 5.5 10^3/uL (1.5-8.5); NEUTROPHILS % 70.4 % (36.0-66.0); PLATELET COUNT, AUTOMATED 223 10^3/uL (150-450); RED BLOOD COUNT 4.42 10^6/uL (4.30-6.10); WHITE BLOOD COUNT 7.8 10^3/uL (4.0-10.0)
[2021-07-28 16:23] LABS: ALBUMIN 3.9 GM/DL (3.2-5.2); ALT/SGPT 32 U/L (12-78); BILIRUBIN,TOTAL 1.2 MG/DL (0.2-1.0); BLOOD UREA NITROGEN 20 MG/DL (7-18); CALCIUM LEVEL 9.7 MG/DL (8.8-10.2); CARBON DIOXIDE LEVEL 30 MEQ/L (21-32); CHLORIDE LEVEL 107 MEQ/L (98-107); GLOMERULAR FILTRATION RATE > 60.0 (>49); GLUCOSE, FASTING 119 MG/DL (70-100); POTASSIUM SERUM 4.3 MEQ/L (3.5-5.1); SODIUM LEVEL 139 MEQ/L (136-145); TOTAL PROTEIN 7.7 GM/DL (6.4-8.2)
[2021-07-28 16:29] LABS: CREATININE, URINE 83.6 MG/DL
[2021-07-28 16:53] LABS: HEMOGLOBIN A1c 5.8 %
== END ==
LOC: M PLALAB 08:36
PROVIDERS: ATTEND Internal Medicine
DX: G47.33 Obstructive sleep apnea (adult) (pediatric) (principal); E11.9 Type 2 diabetes mellitus without complications; I10 Essential (primary) hypertension

== ENCOUNTER → 2021-11-24 | Outpatient (CLI) | payer MEDICARE ==
[2021-11-24 15:57] LABS: BASO # 0.1 10^3/uL (0.0-0.2); BASO % 1.4 % (0.0-1.0); EOS # 0.3 10^3/uL (0.0-0.5); EOS % 5.1 % (0.0-3.0); LYMPH # 1.8 10^3/uL (1.5-5.0); LYMPH % 28.4 % (24.0-44.0); MEAN CORPUSCULAR HEMOGLOBIN 31.9 pg (27.0-33.0); MEAN CORPUSCULAR HGB CONC 34.1 g/dl (32.0-36.5); MEAN CORPUSCULAR VOLUME 93.4 fl (80.0-96.0); MONO # 0.8 10^3/uL (0.0-0.8); MONO % 12.4 % (2.0-8.0); NEUTROPHILS # 3.3 10^3/uL (1.5-8.5); NEUTROPHILS % 52.4 % (36.0-66.0); PLATELET COUNT, AUTOMATED 208 10^3/uL (150-450); RED BLOOD COUNT 4.39 10^6/uL (4.30-6.10); WHITE BLOOD COUNT 6.3 10^3/uL (4.0-10.0)
[2021-11-24 16:22] LABS: ALBUMIN 3.9 GM/DL (3.2-5.2); ALT/SGPT 33 U/L (12-78); BILIRUBIN,TOTAL 1.3 MG/DL (0.2-1.0); BLOOD UREA NITROGEN 15 MG/DL (7-18); CALCIUM LEVEL 9.5 MG/DL (8.8-10.2); CARBON DIOXIDE LEVEL 29 MEQ/L (21-32); CHLORIDE LEVEL 107 MEQ/L (98-107); CREATININE FOR GFR 0.97 MG/DL (0.70-1.30); GLOMERULAR FILTRATION RATE > 60.0 (>49); GLUCOSE, FASTING 72 MG/DL (70-100); POTASSIUM SERUM 3.7 MEQ/L (3.5-5.1); SODIUM LEVEL 141 MEQ/L (136-145); TOTAL PROTEIN 7.9 GM/DL (6.4-8.2)
== END ==
LOC: M LAB 14:51
PROVIDERS: ATTEND Physician Assistant
DX: L40.9 Psoriasis, unspecified (principal)

== ENCOUNTER → 2022-02-02 | Outpatient (CLI) | payer MEDICARE ==
[2022-02-02 08:34] LABS: HEMOGLOBIN A1c 6.1 %
[2022-02-02 08:41] LABS: ALBUMIN 4.2 GM/DL (3.2-5.2); ALT/SGPT 36 U/L (12-78); BILIRUBIN,TOTAL 1.5 MG/DL (0.2-1.0); BLOOD UREA NITROGEN 18 MG/DL (7-18); CALCIUM LEVEL 9.6 MG/DL (8.8-10.2); CARBON DIOXIDE LEVEL 31 MEQ/L (21-32); CHLORIDE LEVEL 106 MEQ/L (98-107); CHOLESTEROL LEVEL 172 MG/DL (<200); CHOLESTEROL RISK RATIO 4.648 (<5); CREATININE FOR GFR 0.84 MG/DL (0.70-1.30); GLOMERULAR FILTRATION RATE > 60.0 (>49); GLUCOSE, FASTING 117 MG/DL (70-100); HDL CHOLESTEROL 37 MG/DL (>40); LDL CHOLESTEROL 106 MG/DL (<100); MAGNESIUM LEVEL 2.1 MG/DL (1.8-2.4); NON-HDL-C 135 MG/DL; POTASSIUM SERUM 4.1 MEQ/L (3.5-5.1); SODIUM LEVEL 143 MEQ/L (136-145); TOTAL PROTEIN 7.7 GM/DL (6.4-8.2); TRIGLYCERIDES LEVEL 147 MG/DL (<150); URIC ACID 4.4 MG/DL (3.5-7.2)
[2022-02-02 08:42] LABS: CREATININE, URINE 90.7 MG/DL; MALB URINE SIEMENS 24.5 MG/L
== END ==
LOC: M LAB 07:25
PROVIDERS: ATTEND Internal Medicine
DX: M10.9 Gout, unspecified (principal); E78.5 Hyperlipidemia, unspecified; Z12.5 Encounter for screening for malignant neoplasm of prostate; I10 Essential (primary) hypertension; E11.9 Type 2 diabetes mellitus without complications
CPT/HCPCS: 36415; 80053; 80061; 82043; 83036; 83735; 84550; G0103

== ENCOUNTER → 2022-02-27 | Outpatient (CLI) | payer MEDICARE ==
[2022-02-27 11:12] LABS: HEMATOCRIT 40.9 % (42.0-52.0); HEMOGLOBIN 13.8 g/dl (13.5-17.5); MEAN CORPUSCULAR HEMOGLOBIN 32.3 pg (27.0-33.0); MEAN CORPUSCULAR HGB CONC 33.7 g/dl (32.0-36.5); MEAN CORPUSCULAR VOLUME 95.8 fl (80.0-96.0); PLATELET COUNT, AUTOMATED 206 10^3/uL (150-450); RED BLOOD COUNT 4.27 10^6/uL (4.30-6.10); WHITE BLOOD COUNT 6.6 10^3/uL (4.0-10.0)
[2022-02-27 11:40] LABS: ALBUMIN 3.8 GM/DL (3.2-5.2); ALT/SGPT 36 U/L (12-78); BILIRUBIN,TOTAL 1.1 MG/DL (0.2-1.0); BLOOD UREA NITROGEN 18 MG/DL (7-18); CARBON DIOXIDE LEVEL 29 MEQ/L (21-32); CHLORIDE LEVEL 107 MEQ/L (98-107); CREATININE FOR GFR 1.03 MG/DL (0.70-1.30); GLOMERULAR FILTRATION RATE > 60.0 (>49); GLUCOSE, FASTING 116 MG/DL (70-100); POTASSIUM SERUM 4.7 MEQ/L (3.5-5.1); SODIUM LEVEL 141 MEQ/L (136-145); TOTAL PROTEIN 7.5 GM/DL (6.4-8.2)
== END ==
LOC: M LAB 10:08
PROVIDERS: ATTEND Physician Assistant
DX: L40.9 Psoriasis, unspecified (principal)

== ENCOUNTER → 2022-05-23 | Outpatient (CLI) | payer MEDICARE ==
[2022-05-23 14:27] LABS: BASO # 0.1 10^3/uL (0.0-0.2); BASO % 1.4 % (0.0-1.0); EOS # 0.2 10^3/uL (0.0-0.5); EOS % 2.5 % (0.0-3.0); HEMATOCRIT 42.1 % (42.0-52.0); HEMOGLOBIN 14.5 g/dl (13.5-17.5); LYMPH # 1.6 10^3/uL (1.5-5.0); LYMPH % 23.8 % (24.0-44.0); MEAN CORPUSCULAR HGB CONC 34.4 g/dl (32.0-36.5); MEAN CORPUSCULAR VOLUME 92.9 fl (80.0-96.0); MONO # 0.7 10^3/uL (0.0-0.8); MONO % 10.8 % (2.0-8.0); NEUTROPHILS % 61.3 % (36.0-66.0); PLATELET COUNT, AUTOMATED 220 10^3/uL (150-450); RED BLOOD COUNT 4.53 10^6/uL (4.30-6.10); WHITE BLOOD COUNT 6.5 10^3/uL (4.0-10.0)
[2022-05-23 15:07] LABS: ALBUMIN 3.8 GM/DL (3.2-5.2); ALT/SGPT 35 U/L (12-78); BILIRUBIN,TOTAL 1.6 MG/DL (0.2-1.0); BLOOD UREA NITROGEN 17 MG/DL (7-18); CALCIUM LEVEL 9.4 MG/DL (8.8-10.2); CARBON DIOXIDE LEVEL 31 MEQ/L (21-32); CHLORIDE LEVEL 105 MEQ/L (98-107); CREATININE FOR GFR 1.08 MG/DL (0.70-1.30); GLOMERULAR FILTRATION RATE > 60.0 (>49); GLUCOSE, FASTING 118 MG/DL (70-100); POTASSIUM SERUM 4.1 MEQ/L (3.5-5.1); SODIUM LEVEL 141 MEQ/L (136-145); TOTAL PROTEIN 7.6 GM/DL (6.4-8.2)
== END ==
LOC: M PLALAB 13:41 → M LAB 13:41
PROVIDERS: ATTEND Physician Assistant
DX: Z79.899 Other long term (current) drug therapy (principal)

== ENCOUNTER → 2022-07-23 | Outpatient (REF) | payer MEDICARE ==
[2022-07-23 14:14] LABS: HEMATOCRIT 43.7 % (42.0-52.0); HEMOGLOBIN 14.5 g/dl (13.5-17.5); MEAN CORPUSCULAR HEMOGLOBIN 32.3 pg (27.0-33.0); MEAN CORPUSCULAR HGB CONC 33.2 g/dl (32.0-36.5); MEAN CORPUSCULAR VOLUME 97.3 fl (80.0-96.0); PLATELET COUNT, AUTOMATED 198 10^3/uL (150-450); RED BLOOD COUNT 4.49 10^6/uL (4.30-6.10); WHITE BLOOD COUNT 6.9 10^3/uL (4.0-10.0)
[2022-07-23 15:03] LABS: ALT/SGPT 44 U/L (12-78); BLOOD UREA NITROGEN 16 MG/DL (7-18); CALCIUM LEVEL 9.4 MG/DL (8.8-10.2); CARBON DIOXIDE LEVEL 30 MEQ/L (21-32); CHLORIDE LEVEL 108 MEQ/L (98-107); CHOLESTEROL LEVEL 144 MG/DL (<200); CHOLESTEROL RISK RATIO 3.063 (<5); CREATININE FOR GFR 0.97 MG/DL (0.70-1.30); FREE T4 0.93 NG/DL (0.76-1.46); GLOMERULAR FILTRATION RATE > 60.0 (>49); GLUCOSE, FASTING 118 MG/DL (70-100); HDL CHOLESTEROL 47 MG/DL (>40); LDL CHOLESTEROL 78 MG/DL (<100); MALB URINE SIEMENS 26.2 MG/L; MAU/CREAT RATIO 19.6 MCG/MG (0.0-30.0); NON-HDL-C 97 MG/DL; POTASSIUM SERUM 4.5 MEQ/L (3.5-5.1); SODIUM LEVEL 142 MEQ/L (136-145); THYROID STIMULATING HORMONE 0.893 uIU/ML (0.358-3.740); TOTAL PROTEIN 7.5 GM/DL (6.4-8.2); TRIGLYCERIDES LEVEL 94 MG/DL (<150)
[2022-07-23 16:08] LABS: TOTAL 25(OH) VITAMIN D 29.9 NG/ML (30.0-100.0); VITAMIN B12 LEVEL 733 PG/ML (247-911)
[2022-07-23 17:09] LABS: HEMOGLOBIN A1c 6.1 %
== END ==
LOC: M PLALAB 13:10
PROVIDERS: ATTEND Internal Medicine Hematology
DX: E11.9 Type 2 diabetes mellitus without complications (principal)

== ENCOUNTER → 2023-02-08 | Outpatient (CLI) | payer MEDICARE ==
[2023-02-08 07:48] LABS: BASO # 0.1 10^3/uL (0.0-0.2); BASO % 1.4 % (0.0-1.0); EOS # 0.3 10^3/uL (0.0-0.5); EOS % 4.1 % (0.0-3.0); HEMATOCRIT 44.6 % (42.0-52.0); HEMOGLOBIN 14.8 g/dl (13.5-17.5); LYMPH # 1.3 10^3/uL (1.5-5.0); LYMPH % 20.4 % (24.0-44.0); MEAN CORPUSCULAR HEMOGLOBIN 31.1 pg (27.0-33.0); MEAN CORPUSCULAR HGB CONC 33.2 g/dl (32.0-36.5); MEAN CORPUSCULAR VOLUME 93.7 fl (80.0-96.0); MONO # 0.8 10^3/uL (0.0-0.8); NEUTROPHILS % 61.8 % (36.0-66.0); PLATELET COUNT, AUTOMATED 206 10^3/uL (150-450); RED BLOOD COUNT 4.76 10^6/uL (4.30-6.10); WHITE BLOOD COUNT 6.4 10^3/uL (4.0-10.0)
[2023-02-08 08:09] LABS: ALBUMIN 3.8 G/DL (3.2-5.2); ALKALINE PHOSPHATASE 67 U/L (46-116); ALT/SGPT 25 U/L (7.0-40); AST/SGOT 31 U/L (<34); BILIRUBIN,TOTAL 1.6 MG/DL (0.3-1.2); BLOOD UREA NITROGEN 22 MG/DL (9-23); CALCIUM LEVEL 9.1 MG/DL (8.3-10.6); CARBON DIOXIDE LEVEL 29 MMOL/L (20-31); CHLORIDE LEVEL 105 MMOL/L (98-107); CREATININE FOR GFR 0.87 MG/DL (0.70-1.30); GLOMERULAR FILTRATION RATE > 60.0 (>49); GLUCOSE, FASTING 110 MG/DL (74-106); POTASSIUM SERUM 3.6 MMOL/L (3.5-5.1); SODIUM LEVEL 140 MMOL/L (136-145); TOTAL PROTEIN 7.1 G/DL (5.7-8.2)
== END ==
LOC: M LAB 06:52
PROVIDERS: ATTEND Physician Assistant
DX: Z79.899 Other long term (current) drug therapy (principal); Z53.9 Procedure and treatment not carried out, unspecified reason

== ENCOUNTER → 2023-02-08 | Outpatient (CLI) | payer MEDICARE ==
[2023-02-08 07:48] LABS: HEMATOCRIT 43.7 % (42.0-52.0); HEMOGLOBIN 14.8 g/dl (13.5-17.5); MEAN CORPUSCULAR HEMOGLOBIN 31.5 pg (27.0-33.0); MEAN CORPUSCULAR HGB CONC 33.9 g/dl (32.0-36.5); PLATELET COUNT, AUTOMATED 214 10^3/uL (150-450); WHITE BLOOD COUNT 6.4 10^3/uL (4.0-10.0)
[2023-02-08 08:08] LABS: CREATININE, URINE 93.6 MG/DL
[2023-02-08 08:09] LABS: MAU/CREAT RATIO 26.7 MCG/MG (0.0-30.0)
[2023-02-08 08:11] LABS: ALBUMIN 3.8 G/DL (3.2-5.2); ALKALINE PHOSPHATASE 67 U/L (46-116); ALT/SGPT 26 U/L (7.0-40); AST/SGOT 32 U/L (<34); BILIRUBIN,TOTAL 1.6 MG/DL (0.3-1.2); BLOOD UREA NITROGEN 21 MG/DL (9-23); CALCIUM LEVEL 9.1 MG/DL (8.3-10.6); CARBON DIOXIDE LEVEL 28 MMOL/L (20-31); CHLORIDE LEVEL 104 MMOL/L (98-107); CHOLESTEROL LEVEL 148 MG/DL (<200); CHOLESTEROL RISK RATIO 4.09 (<5); CREATININE FOR GFR 0.89 MG/DL (0.70-1.30); GLOMERULAR FILTRATION RATE > 60.0 (>49); GLUCOSE, FASTING 109 MG/DL (74-106); HDL CHOLESTEROL 36.1 MG/DL (>40); LDL CHOLESTEROL 92.9 MG/DL (<100); NON-HDL-C 111.9 MG/DL; POTASSIUM SERUM 3.6 MMOL/L (3.5-5.1); SODIUM LEVEL 140 MMOL/L (136-145); TOTAL PROTEIN 7.4 G/DL (5.7-8.2); TRIGLYCERIDES LEVEL 95 MG/DL (<150)
[2023-02-08 08:12] LABS: FREE T4 1.07 NG/DL (0.89-1.76); THYROID STIMULATING HORMONE 1.925 uIU/ML (0.55-4.78)
[2023-02-08 08:13] LABS: TOTAL 25(OH) VITAMIN D 30.3 NG/ML (20.0-100.0); VITAMIN B12 LEVEL 680 PG/ML (211-911)
== END ==
LOC: M LAB 06:47
PROVIDERS: ATTEND Internal Medicine Hematology
DX: E11.9 Type 2 diabetes mellitus without complications (principal); Z12.5 Encounter for screening for malignant neoplasm of prostate; Z79.899 Other long term (current) drug therapy
CPT/HCPCS: 36415; 80053; 80061; 82043; 82306; 82607; 83036; 84439; 84443; 85025; 86140; G0103

== ENCOUNTER → 2023-02-11 | Outpatient (CLI) | payer MEDICARE | LOC: M PLAIMG 11:40 | PROVIDERS: ATTEND Internal Medicine Hematology | DX: M19.012 Primary osteoarthritis, left shoulder (principal) ==

== ENCOUNTER → 2023-04-12 | Outpatient (CLI) | payer MEDICARE ==
[2023-04-12 12:25] LABS: BASO # 0.1 10^3/uL (0.0-0.2); EOS # 0.2 10^3/uL (0.0-0.5); HEMATOCRIT 41.5 % (42.0-52.0); HEMOGLOBIN 14.4 g/dl (13.5-17.5); LYMPH # 1.7 10^3/uL (1.5-5.0); LYMPH % 16.8 % (24.0-44.0); MEAN CORPUSCULAR HEMOGLOBIN 31.9 pg (27.0-33.0); MEAN CORPUSCULAR HGB CONC 34.7 g/dl (32.0-36.5); MONO # 0.9 10^3/uL (0.0-0.8); NEUTROPHILS # 6.9 10^3/uL (1.5-8.5); NEUTROPHILS % 70.7 % (36.0-66.0); PLATELET COUNT, AUTOMATED 260 10^3/uL (150-450); RED BLOOD COUNT 4.51 10^6/uL (4.30-6.10); WHITE BLOOD COUNT 9.8 10^3/uL (4.0-10.0)
[2023-04-12 12:36] LABS: APPEARANCE, URINE CLOUDY (CLEAR); BACTERIA, URINE AUTO NEGATIVE (NEGATIVE); BILIRUBIN, URINE AUTO NEGATIVE (NEGATIVE); BLOOD, URINE BLOOD NEGATIVE (NEGATIVE); COLOR, URINE AMBER (YELLOW); GLUCOSE, URINE (UA) AUTO NEGATIVE (NEGATIVE); KETONE, URINE AUTO NEGATIVE (NEGATIVE); LEUKOCYTE ESTERASE, URINE AUTO NEGATIVE (NEGATIVE); MUCUS, URINE SMALL (NEGATIVE); NITRITE, URINE AUTO NEGATIVE (NEGATIVE); PROTEIN, URINE AUTO NEGATIVE (NEGATIVE); RBC, URINE AUTO 0 /HPF (0-3); SQUAMOUS EPITHELIAL CELL UR AU 0 /HPF (0-6); UROBILINOGEN, URINE AUTO 0.2 mg/dL (0.0-2.0); WBC, URINE AUTO 1 /HPF (0-3)
[2023-04-12 12:39] LABS: ALKALINE PHOSPHATASE 66 U/L (46-116); ALT/SGPT 29 U/L (7.0-40); AST/SGOT 26 U/L (<34); BILIRUBIN,TOTAL 1.1 MG/DL (0.3-1.2); BLOOD UREA NITROGEN 23 MG/DL (9-23); CARBON DIOXIDE LEVEL 28 MMOL/L (20-31); CHLORIDE LEVEL 108 MMOL/L (98-107); CREATININE FOR GFR 0.84 MG/DL (0.70-1.30); GLOMERULAR FILTRATION RATE > 60.0 (>49); GLUCOSE, FASTING 111 MG/DL (74-106); POTASSIUM SERUM 3.9 MMOL/L (3.5-5.1); SODIUM LEVEL 140 MMOL/L (136-145); TOTAL PROTEIN 7.3 G/DL (5.7-8.2)
[2023-04-12 12:41] LABS: HEMOGLOBIN A1c 6.2 % (4.0-6.0)
[2023-04-12 12:43] LABS: TOTAL 25(OH) VITAMIN D 30.8 NG/ML (20.0-100.0)
[2023-04-12 12:47] LABS: INR 0.92; PROTHROMBIN TIME 12.6 SECONDS (12.5-14.5)
== END ==
LOC: M LAB 11:48
PROVIDERS: ATTEND Orthopaedic Surgery
DX: M75.102 Unspecified rotator cuff tear or rupture of left shoulder, not specified as traumatic (principal)

== ENCOUNTER → 2023-07-30 | Outpatient (REF) | payer MEDICARE ==
[2023-07-30 18:19] LABS: SOURCE, BODY FLUID LFT KNEE; SYNOVIAL FLUID COLOR YELLOW (COLORLESS)
[2023-07-30 18:31] LABS: SOURCE, BODY FLUID GLUCOSE LFT KNEE
[2023-07-30 18:46] LABS: CRYSTALS, BODY FLUID CA PYROPHOSPHATE (NONE SEEN); SOURCE, BODY FLUID CRYSTALS LFT KNEE
== END ==
LOC: M LAB REF 17:35
PROVIDERS: ATTEND Physician Assistant
DX: M25.462 Effusion, left knee (principal)

== ENCOUNTER → 2023-08-08 | Outpatient (CLI) | payer MEDICARE ==
[2023-08-08 07:20] LABS: HEMATOCRIT 44.3 % (42.0-52.0); HEMOGLOBIN 14.8 g/dl (13.5-17.5); MEAN CORPUSCULAR HEMOGLOBIN 31.3 pg (27.0-33.0); MEAN CORPUSCULAR HGB CONC 33.4 g/dl (32.0-36.5); MEAN CORPUSCULAR VOLUME 93.7 fl (80.0-96.0); PLATELET COUNT, AUTOMATED 254 10^3/uL (150-450); RED BLOOD COUNT 4.73 10^6/uL (4.30-6.10); WHITE BLOOD COUNT 8.5 10^3/uL (4.0-10.0)
[2023-08-08 07:40] LABS: CREATININE, URINE 90.8 MG/DL; MAU/CREAT RATIO 24.2 MCG/MG (0.0-30.0)
[2023-08-08 07:41] LABS: C REACTIVE PROTEIN QUANTITATIV < 0.40 MG/DL (<1.0)
[2023-08-08 07:46] LABS: ALBUMIN 3.8 G/DL (3.2-5.2); ALKALINE PHOSPHATASE 72 U/L (46-116); ALT/SGPT 22 U/L (7.0-40); AST/SGOT 21 U/L (<34); BILIRUBIN,TOTAL 1.6 MG/DL (0.3-1.2); BLOOD UREA NITROGEN 21 MG/DL (9-23); CALCIUM LEVEL 9.1 MG/DL (8.3-10.6); CARBON DIOXIDE LEVEL 31 MMOL/L (20-31); CHLORIDE LEVEL 102 MMOL/L (98-107); CHOLESTEROL LEVEL 170 MG/DL (<200); CHOLESTEROL RISK RATIO 3.03 (<5); CREATININE FOR GFR 0.89 MG/DL (0.70-1.30); FREE T4 1.02 NG/DL (0.89-1.76); GLOMERULAR FILTRATION RATE > 60.0 (>49); GLUCOSE, FASTING 100 MG/DL (74-106); HDL CHOLESTEROL 56.1 MG/DL (>40); LDL CHOLESTEROL 95.5 MG/DL (<100); NON-HDL-C 113.9 MG/DL; POTASSIUM SERUM 3.6 MMOL/L (3.5-5.1); SODIUM LEVEL 141 MMOL/L (136-145); THYROID STIMULATING HORMONE 1.374 uIU/ML (0.55-4.78); TOTAL 25(OH) VITAMIN D 26.6 NG/ML (20.0-100.0); TOTAL PROTEIN 7.3 G/DL (5.7-8.2); TRIGLYCERIDES LEVEL 92 MG/DL (<150); VITAMIN B12 LEVEL 850 PG/ML (211-911)
[2023-08-08 08:12] LABS: HEMOGLOBIN A1c 5.9 % (4.0-6.0)
== END ==
LOC: M LAB 06:45
PROVIDERS: ATTEND Internal Medicine Hematology
DX: E11.9 Type 2 diabetes mellitus without complications (principal); Z79.899 Other long term (current) drug therapy

== ENCOUNTER → 2024-02-13 | Outpatient (CLI) | payer MEDICARE ==
[2024-02-13 09:00] LABS: HEMATOCRIT 45.5 % (42.0-52.0); HEMOGLOBIN 15.9 g/dl (13.5-17.5); MEAN CORPUSCULAR HEMOGLOBIN 31.8 pg (27.0-33.0); MEAN CORPUSCULAR HGB CONC 34.9 g/dl (32.0-36.5); PLATELET COUNT, AUTOMATED 226 10^3/uL (150-450); WHITE BLOOD COUNT 6.1 10^3/uL (4.0-10.0)
[2024-02-13 09:19] LABS: HEMOGLOBIN A1c 6.1 % (4.0-6.0)
[2024-02-13 09:32] LABS: CREATININE, URINE 144.5 MG/DL; MAU/CREAT RATIO 32.5 MCG/MG (0.0-30.0)
[2024-02-13 09:33] LABS: C REACTIVE PROTEIN QUANTITATIV < 0.40 MG/DL (<1.0)
[2024-02-13 09:34] LABS: FREE T4 1.05 NG/DL (0.89-1.76); THYROID STIMULATING HORMONE 1.255 uIU/ML (0.55-4.78)
[2024-02-13 09:35] LABS: TOTAL 25(OH) VITAMIN D 50.4 NG/ML (20.0-100.0)
[2024-02-13 09:36] LABS: VITAMIN B12 LEVEL 936 PG/ML (211-911)
[2024-02-13 09:37] LABS: ALBUMIN 3.8 G/DL (3.2-5.2); ALKALINE PHOSPHATASE 72 U/L (46-116); ALT/SGPT 33 U/L (7.0-40); AST/SGOT 31 U/L (<34); BILIRUBIN,TOTAL 2.2 MG/DL (0.3-1.2); BLOOD UREA NITROGEN 21 MG/DL (9-23); CALCIUM LEVEL 9.8 MG/DL (8.3-10.6); CARBON DIOXIDE LEVEL 30 MMOL/L (20-31); CHLORIDE LEVEL 104 MMOL/L (98-107); CHOLESTEROL LEVEL 167 MG/DL (<200); CHOLESTEROL RISK RATIO 4.48 (<5); CREATININE FOR GFR 1.04 MG/DL (0.70-1.30); GLOMERULAR FILTRATION RATE > 60.0 (>49); GLUCOSE, FASTING 111 MG/DL (74-106); HDL CHOLESTEROL 37.2 MG/DL (>40); LDL CHOLESTEROL 104.2 MG/DL (<100); NON-HDL-C 129.8 MG/DL; POTASSIUM SERUM 3.9 MMOL/L (3.5-5.1); SODIUM LEVEL 143 MMOL/L (136-145); TOTAL PROTEIN 7.4 G/DL (5.7-8.2); TRIGLYCERIDES LEVEL 128 MG/DL (<150)
== END ==
LOC: M LAB 07:53
PROVIDERS: ATTEND Internal Medicine Hematology
DX: E11.9 Type 2 diabetes mellitus without complications (principal)

== ENCOUNTER 2024-07-13 12:26 | Day surgery (SDC) | payer MEDICARE ==
[~2024-07-13] VITALS: Ht 170.2 cm; Wt 92.4 kg
[~2024-07-13 12:26] MED LIST changes: +ALLO10TA PO; +AMLO10CA30 PO; +ATOR1TAB21 PO; +CARV6.25 PO; +CAYE450C3 PO; +CELE100C PO; +CHLO25TA PO; +CINN500C12 PO; +EQL50TAB2 PO; +FOLI1TAB11 PO; +GING500C3 PO; +HYDR-3713 PO; +MAGN200T PO; +METH2.5T48 PO; +NEUR600T PO; +OMEGCAP9 PO; +RA T500C2 PO; +SILD25TA PO; +THERTAB52 PO; +TIZA1TAB12 PO; +VITA100T91 PO; +[UNRECOGNIZED DRUG - OTHER] PO; +beet root PO
[2024-07-13] MEDS ORDERED: propofoL 500 MG/50 ML VIAL As Ordered ONE (13:56)
[2024-07-13] MEDS: NS 1,000 ML IV ONE (14:06)
[2024-07-13 15:10] VITALS: TEMP 98.9
[2024-07-13 15:41] VITALS: BP 160/74; O2SAT 95
== END 2024-07-13 15:49 | disposition home or self-care (01) ==
LOC: M OPP 12:26
PROVIDERS: ATTEND Internal Medicine Gastroenterology
DX: Z12.11 Encounter for screening for malignant neoplasm of colon (principal); Z12.12 Encounter for screening for malignant neoplasm of rectum; K64.0 First degree hemorrhoids; K57.30 Diverticulosis of large intestine without perforation or abscess without bleeding; R73.03 Prediabetes; I10 Essential (primary) hypertension; E78.00 Pure hypercholesterolemia, unspecified; M10.9 Gout, unspecified; G47.30 Sleep apnea, unspecified; Z79.899 Other long term (current) drug therapy; Z79.631 Long term (current) use of antimetabolite agent

== ENCOUNTER → 2024-08-21 | Outpatient (CLI) | payer MEDICARE ==
[2024-08-21 07:47] LABS: BASO # 0.1 10^3/uL (0.0-0.2); BASO % 1.2 % (0.0-1.0); EOS # 0.1 10^3/uL (0.0-0.5); EOS % 1.6 % (0.0-3.0); HEMATOCRIT 44.9 % (42.0-52.0); HEMOGLOBIN 15.3 g/dl (13.5-17.5); LYMPH # 1.7 10^3/uL (1.5-5.0); LYMPH % 20.4 % (24.0-44.0); MEAN CORPUSCULAR HGB CONC 34.1 g/dl (32.0-36.5); MEAN CORPUSCULAR VOLUME 93.9 fl (80.0-96.0); MONO # 0.7 10^3/uL (0.0-0.8); NEUTROPHILS # 5.5 10^3/uL (1.5-8.5); NEUTROPHILS % 67.1 % (36.0-66.0); PLATELET COUNT, AUTOMATED 211 10^3/uL (150-450); RED BLOOD COUNT 4.78 10^6/uL (4.30-6.10); WHITE BLOOD COUNT 8.2 10^3/uL (4.0-10.0)
[2024-08-21 08:00] LABS: HEMOGLOBIN A1c 6.3 % (4.0-6.0)
[2024-08-21 08:15] LABS: CREATININE, URINE 103.5 MG/DL
[2024-08-21 08:16] LABS: MAU/CREAT RATIO 21.2 MCG/MG (0.0-30.0)
[2024-08-21 08:16] LABS: C REACTIVE PROTEIN QUANTITATIV < 0.40 MG/DL (<1.0)
[2024-08-21 08:17] LABS: ALBUMIN 3.8 G/DL (3.2-5.2); ALKALINE PHOSPHATASE 66 U/L (40-129); ALT/SGPT 47 U/L (7.0-40); AST/SGOT 36 U/L (<34); BILIRUBIN,TOTAL 1.9 MG/DL (0.3-1.2); BLOOD UREA NITROGEN 21 MG/DL (9-23); CALCIUM LEVEL 9.9 MG/DL (8.3-10.6); CARBON DIOXIDE LEVEL 32 MMOL/L (20-31); CHLORIDE LEVEL 107 MMOL/L (98-107); CHOLESTEROL LEVEL 207 MG/DL (<200); CHOLESTEROL RISK RATIO 3.66 (<5); CREATININE FOR GFR 0.98 MG/DL (0.70-1.30); GLOMERULAR FILTRATION RATE > 60.0 (>49); GLUCOSE, FASTING 112 MG/DL (74-106); HDL CHOLESTEROL 56.5 MG/DL (>40); LDL CHOLESTEROL 133.1 MG/DL (<100); NON-HDL-C 150.5 MG/DL; POTASSIUM SERUM 4.1 MMOL/L (3.5-5.1); SODIUM LEVEL 141 MMOL/L (136-145); TOTAL PROTEIN 7.4 G/DL (5.7-8.2); TRIGLYCERIDES LEVEL 87 MG/DL (<150)
[2024-08-21 08:19] LABS: THYROID STIMULATING HORMONE 1.717 uIU/ML (0.55-4.78); VITAMIN B12 LEVEL 1013 PG/ML (211-911)
[2024-08-21 08:20] LABS: TOTAL 25(OH) VITAMIN D 42.4 NG/ML (20.0-100.0)
== END ==
LOC: M LAB 07:15
PROVIDERS: ATTEND Internal Medicine Hematology
DX: Z12.5 Encounter for screening for malignant neoplasm of prostate (principal); E78.00 Pure hypercholesterolemia, unspecified
CPT/HCPCS: 36415; 80053; 80061; 82043; 82306; 82607; 83036; 83525; 84439; 84443; 85025; 86140; G0103

== ENCOUNTER → 2024-09-01 | Outpatient (CLI) | payer MEDICARE ==
[2024-09-01 08:18] LABS: ALBUMIN 3.8 G/DL (3.2-5.2); ALKALINE PHOSPHATASE 71 U/L (40-129); ALT/SGPT 58 U/L (7.0-40); AST/SGOT 43 U/L (<34); BILIRUBIN,TOTAL 1.2 MG/DL (0.3-1.2); BLOOD UREA NITROGEN 21 MG/DL (9-23); CALCIUM LEVEL 9.6 MG/DL (8.3-10.6); CARBON DIOXIDE LEVEL 33 MMOL/L (20-31); CHLORIDE LEVEL 105 MMOL/L (98-107); CREATININE FOR GFR 0.91 MG/DL (0.70-1.30); GLOMERULAR FILTRATION RATE > 60.0 (>49); GLUCOSE, FASTING 138 MG/DL (74-106); POTASSIUM SERUM 4.2 MMOL/L (3.5-5.1); SODIUM LEVEL 140 MMOL/L (136-145); TOTAL PROTEIN 7.5 G/DL (5.7-8.2)
[2024-09-01 08:51] LABS: HIV 1&2 SCREEN NEGATIVE (NEGATIVE)
[2024-09-01 09:36] LABS: GC DNA AMPLIFICATION NEGATIVE (NEGATIVE)
== END ==
LOC: M LAB 07:09
PROVIDERS: ATTEND Student in an Organized Health Care Education/Training Program
DX: N48.9 Disorder of penis, unspecified (principal); R79.89 Other specified abnormal findings of blood chemistry

== ENCOUNTER → 2024-12-14 | Outpatient (CLI) | payer MEDICARE | LOC: M WHC 08:10 | PROVIDERS: ATTEND Student in an Organized Health Care Education/Training Program | DX: K74.00 Hepatic fibrosis, unspecified (principal) ==

== ENCOUNTER → 2025-02-08 | Outpatient (CLI) | payer MEDICARE | LOC: M LAB 07:45 | PROVIDERS: ATTEND Physician Assistant | DX: Z79.899 Other long term (current) drug therapy (principal) ==

== ENCOUNTER → 2025-02-08 | Outpatient (CLI) | payer MEDICARE ==
[2025-02-08 08:42] LABS: INR 0.94; PROTHROMBIN TIME 12.9 SECONDS (12.5-14.5)
[2025-02-08 08:57] LABS: CREATININE, URINE 126.8 MG/DL; MAU/CREAT RATIO 32.3 MCG/MG (0.0-30.0)
[2025-02-08 08:59] LABS: ALKALINE PHOSPHATASE 88 U/L (40-129); ALT/SGPT 33 U/L (7.0-40); AST/SGOT 28 U/L (<34); BILIRUBIN,TOTAL 1.7 MG/DL (0.3-1.2); BLOOD UREA NITROGEN 22 MG/DL (9-23); CALCIUM LEVEL 9.6 MG/DL (8.3-10.6); CARBON DIOXIDE LEVEL 29 MMOL/L (20-31); CHLORIDE LEVEL 104 MMOL/L (98-107); GLUCOSE, FASTING 150 MG/DL (74-106); IRON (FE) 121 UG/DL (65-175); PERCENT SATURATION 37.2 % (19.7-50.0); POTASSIUM SERUM 3.5 MMOL/L (3.5-5.1); SODIUM LEVEL 143 MMOL/L (136-145); TOTAL IRON BINDING CAPACITY 325 UG/DL (250-425); TOTAL PROTEIN 7.5 G/DL (5.7-8.2)
[2025-02-08 09:02] LABS: HEMOGLOBIN A1c 7.6 % (4.0-6.0)
[2025-02-08 09:03] LABS: FERRITIN 220.9 NG/ML (10.5-307.3)
[2025-02-10 11:27] LABS: ANA PATTERN Cytoplasmic (NEGATIVE); ANA SCREEN, IFA POSITIVE (NEGATIVE); ANA TITER 1:40 titer (<1:40)
[2025-02-10 16:46] LABS: ANTI-MITOCHONDRIAL ANTIBODY POSITIVE (NEGATIVE)
[2025-02-10 17:27] LABS: MITOCHONDRIAL AB TITER 1:20 titer (<1:20)
== END ==
LOC: M LAB 07:46
PROVIDERS: ATTEND Student in an Organized Health Care Education/Training Program
DX: K74.00 Hepatic fibrosis, unspecified (principal); E11.9 Type 2 diabetes mellitus without complications

== ENCOUNTER → 2025-02-10 | Outpatient (CLI) | payer MEDICARE ==
[2025-02-10 14:28] LABS: BASO # 0.2 10^3/uL (0.0-0.2); BASO % 2.2 % (0.0-1.0); EOS # 0.5 10^3/uL (0.0-0.5); EOS % 6.7 % (0.0-3.0); HEMATOCRIT 46.3 % (42.0-52.0); HEMOGLOBIN 15.6 g/dl (13.5-17.5); LYMPH # 1.5 10^3/uL (1.5-5.0); LYMPH % 20.6 % (24.0-44.0); MEAN CORPUSCULAR HEMOGLOBIN 31.8 pg (27.0-33.0); MEAN CORPUSCULAR HGB CONC 33.7 g/dl (32.0-36.5); MEAN CORPUSCULAR VOLUME 94.5 fl (80.0-96.0); MONO # 0.9 10^3/uL (0.0-0.8); MONO % 11.9 % (2.0-8.0); NEUTROPHILS # 4.3 10^3/uL (1.5-8.5); NEUTROPHILS % 58.3 % (36.0-66.0); PLATELET COUNT, AUTOMATED 219 10^3/uL (150-450); WHITE BLOOD COUNT 7.3 10^3/uL (4.0-10.0)
== END ==
LOC: M WUC 09:22
PROVIDERS: ATTEND Nurse Practitioner Family
DX: R05.9 Cough, unspecified (principal); R06.02 Shortness of breath; R60.0 Localized edema

== ENCOUNTER → 2025-06-18 | Outpatient (CLI) | payer MEDICARE ==
[~2025-06-18] MED LIST changes: -EQL50TAB2 PO; -RA T500C2 PO; +TURM500C10 PO; +VITA1TAB82 PO
[2025-06-18 12:04] LABS: ALT/SGPT 36.0 U/L (7.0-40); AST/SGOT 32.0 U/L (<34); CALCIUM LEVEL 9.8 MG/DL (8.3-10.6); CARBON DIOXIDE LEVEL 30.0 MMOL/L (20-31); CHLORIDE LEVEL 104.0 MMOL/L (98-107); CREATININE FOR GFR 0.94 MG/DL (0.70-1.30); GLOMERULAR FILTRATION RATE 87.2 (>42); POTASSIUM SERUM 3.7 MMOL/L (3.5-5.1); SODIUM LEVEL 145.0 MMOL/L (136-145)
== END ==
LOC: M LAB 10:46
PROVIDERS: ATTEND Student in an Organized Health Care Education/Training Program
DX: K74.00 Hepatic fibrosis, unspecified (principal)

== ENCOUNTER → 2025-08-11 | Outpatient (CLI) | payer MEDICARE ==
[2025-08-11 09:14] LABS: PLATELET COUNT, AUTOMATED 205 10^3/uL (150-450)
[2025-08-11 09:34] LABS: INR 0.9
[2025-08-11 09:52] LABS: ALT/SGPT 35 U/L (7.0-40); AST/SGOT 41 U/L (<34); CALCIUM LEVEL 9.3 MG/DL (8.3-10.6); CARBON DIOXIDE LEVEL 29 MMOL/L (20-31); CHLORIDE LEVEL 102 MMOL/L (98-107); CREATININE FOR GFR 0.83 MG/DL (0.70-1.30); GLOMERULAR FILTRATION RATE > 90.0 (>42); POTASSIUM SERUM 3.5 MMOL/L (3.5-5.1); SODIUM LEVEL 142 MMOL/L (136-145)
== END ==
LOC: M RAD 07:46
PROVIDERS: ATTEND Orthopaedic Surgery
DX: Z01.818 Encounter for other preprocedural examination (principal); M17.12 Unilateral primary osteoarthritis, left knee; I45.10 Unspecified right bundle-branch block; I44.4 Left anterior fascicular block; R00.1 Bradycardia, unspecified; Z79.899 Other long term (current) drug therapy; I10 Essential (primary) hypertension; E78.5 Hyperlipidemia, unspecified; E11.9 Type 2 diabetes mellitus without complications

== ENCOUNTER → 2025-08-11 | Outpatient (CLI) | payer MEDICARE ==
[2025-08-11 09:08] LABS: BASO # 0.1 10^3/uL (0.0-0.2); BASO % 1.3 % (0.0-1.0); EOS # 0.3 10^3/uL (0.0-0.5); EOS % 3.6 % (0.0-3.0); LYMPH # 1.2 10^3/uL (1.5-5.0); LYMPH % 16.8 % (24.0-44.0); MONO # 0.6 10^3/uL (0.0-0.8); MONO % 8.5 % (2.0-8.0); NEUTROPHILS # 5.0 10^3/uL (1.5-8.5); NEUTROPHILS % 69.0 % (36.0-66.0); PLATELET COUNT, AUTOMATED 208 10^3/uL (150-450)
[2025-08-11 09:37] LABS: ESTIMATED AVERAGE GLUCOSE 146.0 MG/DL (60-110)
[2025-08-11 09:39] LABS: CHOLESTEROL LEVEL 160.0 MG/DL (<200); CHOLESTEROL RISK RATIO 4.59 (<5); CREATININE, URINE 140.3 MG/DL; LDL CHOLESTEROL 95.6 MG/DL (<100); MALB URINE SIEMENS 48.0 MG/L; MAU/CREAT RATIO 34.2 MCG/MG (0.0-30.0); NON-HDL-C 125.2 MG/DL; TRIGLYCERIDES LEVEL 148.0 MG/DL (<150)
== END ==
LOC: M LAB 07:50
PROVIDERS: ATTEND Student in an Organized Health Care Education/Training Program
DX: I10 Essential (primary) hypertension (principal); E78.5 Hyperlipidemia, unspecified; E11.9 Type 2 diabetes mellitus without complications